=== PATIENT | male | born 1990 | race Caucasian/White ===

== ENCOUNTER 2017-05-22 04:38 | Inpatient (IN) ==
[2017-05-22] MEDS ORDERED: LOPRESSOR IV ONE (04:56)
[2017-05-22] MEDS ORDERED: ASPIRIN PO STA (04:57)
[2017-05-22] MEDS ORDERED: NS 1,000 ML ONE (04:59)
--- NOTE | 2017-05-22 05:01 | EKG Report ---
Test Performed on : 05/22/2017 04:57:28 AM Test Reason : CHEST PAIN Blood Pressure : / mmHG Vent. Rate : 174 BPM Atrial Rate : 174 BPM P-R Int : 128 ms QRS Dur : 088 ms QT Int : 282 ms P-R-T Axes : 081 038 007 degrees QTc Int : 479 ms Sinus tachycardia. Nonspecific ST abnormality Abnormal ECG No previous ECGs available Unconfirmed Result
[2017-05-22] MEDS ORDERED: NS 1,000 ML IV ONE ×2 (05:04→07:07)
[2017-05-22 05:11] LABS: BASO% 0.3 % (0.0-0.8); EOS# 0.08 X1000 (0.0-0.7); EOS% 0.4 % (0.0-10.0); HEMATOCRIT 42.3 % (42.0-52.0); HEMOGLOBIN 14.9 g/dL (14.0-18.0); IMM GRAN# 0.06 X1000 (0.0-0.04); IMM GRAN% 0.3 % (0.0-0.5); LYMPH% 15.9 % (20.5-51.1); MANUAL DIFF NEEDED? NO; MCH 29.3 PG (27-31); MCHC 35.2 g/dL (33-37); MCV 83.1 FL (81-99); MONO# 1.98 X1000 (0.11-0.59); MONO% 9.8 % (1.7-9.3); MPV 9.6 FL (7.4-10.4); NEUT% 73.3 % (42.2-75.2); PLT 447 X1000 (130-400); RBC 5.09 XMIL (4.7-6.1)
--- NOTE | 2017-05-22 05:14 | PROVIDER DOCUMENTATION ---
HPI-Cardiac General - General Chief Complaint: Palpitations Stated Complaint: HEART RACING Time Seen by Provider: 05/22/17 05:08 Source: patient Allergies/Adverse Reactions: Patient Allergies Allergy/AdvReac Type Severity Reaction Status Date / Time No Known Allergies Allergy Verified 05/22/17 04:47 Home Medications: Home Medication List Medication Instructions Recorded Confirmed Last Taken Type Ranitidine HCl [Zantac] 150 mg PO DAILY 05/22/17 05/22/17 Unknown History - History of Present Illness-Cardiac Nature of Presenting Problem: rapid heart beat with sob hyperventilating with eyes closed tightly clenched fists telling about taking 6 excedrin 20 to 30 zantac 2 rock stars each day asking if he was in the process of dying . Quality of Pain: reports: none Onset/Duration: 1-3 hours ago Timing: still present, intermittent, other (hyperventilating) Context/Activities at Onset: reports: other (driving home from [place]) Associated Symptoms: reports: dizziness, shortness of breath, swelling/lump in chest Similar Symptoms Previously?: Yes Recently Seen Here or By Another Healthcare Provider: No Review of Systems - Adult - REVIEW OF SYSTEMS - ADULT Constitutional: reports: no symptoms reported Eyes: reports: no symptoms reported Ears, Nose, Mouth & Throat: reports: no symptoms reported Cardiovascular: reports: palpitations Respiratory: reports: shortness of breath Gastrointestinal: reports: no symptoms reported Genitourinary: reports: no symptoms reported Musculoskeletal: reports: no symptoms reported Integumentary: reports: no symptoms reported Neurological: reports: numbness, paresthesia Psychiatric: reports: anxiety Endocrine: reports: no symptoms reported Hematologic/Lymphatic: reports: no symptoms reported Allergic/Immunologic: reports: no symptoms reported Past History - Adult - PAST MEDICAL HISTORY-ADULT Review of Records: reports: Nursing Assessment Review, Medications Reviewed, Social history reviewed & non-contributory. Major Childhood Illnesses: reports: denies history Cardiovascular: reports: palpitations Respiratory: reports: denies history Gastrointestinal: reports: denies history, GERD Genitourinary: reports: denies history Musculoskeletal: reports: denies history Neurological: reports: denies history Psychiatric: reports: anxiety Endocrine/Immune: reports: denies history Other Conditions: reports: denies history - PRIOR SURGERIES/PROCEDURES Surgical/Procedure History: reports: tonsillectomy - SOCIAL HISTORY Smoking: cigarettes Substance Use: other (zantac and excedrins) Physical Exam-General - PHYSICAL EXAM-ADULT Initial Vital Signs Reviewed: Yes - CONSTITUTIONAL General Appearance: anxious - EYES Eyes: PERRL/EOMI - HEAD, EARS, NOSE, MOUTH & THROAT HENMT: moist mucous membranes, normal ENT inspection - NECK Neck: supple - RESPIRATORY Respiratory: accessory muscle use, increased rate - CARDIOVASCULAR Cardiovascular: tachycardia - GASTROINTESTINAL (ABDOMEN) Abdominal Exam: soft - LYMPHATIC Lymphatic: no adenopathy - MUSCULOSKELETAL Back Exam: normal inspection, no CVA tenderness Extremity: normal range of motion Peripheral Pulses: carotid (R): 2+, carotid (L): 2+ DTR: ankle (R): 3+, ankle (L): 3+ - SKIN Integumentary: normal color - NEUROLOGIC Neurologic: grossly normal - PSYCHIATRIC Psych/Mental Status: anxious Progress - PLAN OF CARE/RESULTS Progress/Plan/Lab Results: Vital Signs - 8 hr 05/22/17 04:42 05/22/17 05:07 Temperature 98.3 F Pulse Rate 151 H 135 H Respiratory Rate 24 22 Blood Pressure 145/56 137/73 O2 Sat by Pulse Oximetry 99 100 Laboratory Results - last 24 hr 05/22/17 05/22/17 05/22/17 04:45 04:55 04:55 WBC RBC Hgb Hct MCV MCH MCHC RDW Std Deviation Plt Count MPV Immature Gran % (Auto) Neut % (Auto) Lymph % (Auto) [place] % (Auto) Eos % (Auto) Baso % (Auto) Immature Gran # (Auto) Neut # (Auto) Lymph # (Auto) [place] # (Auto) Eos # (Auto) Baso # (Auto) PT INR APTT (Factor Assay) D-Dimer Specimen Type Sample Site pH pCO2 pO2 HCO3 Base Excess Oxyhemoglobin ABG O2 Sat (Calculated) ABG O2 Saturation ABG Carboxyhemoglobin ABG Methemoglobin Syed Test A-a O2 Difference Total Hemoglobin Lactate Liter Flow Blood Gas Modality FiO2 % Sodium 140 Potassium 2.9 L Chloride 102 Carbon Dioxide 16 L Anion Gap 22 BUN 20 Creatinine 1.0 Estimated GFR/1.73 m2 > 60 BUN/Creatinine Ratio 20 Glucose 157 H Calculated Osmolality 285 Calcium 9.6 Magnesium 2.1 Total Bilirubin 0.20 AST 32 ALT 70 H Alkaline Phosphatase 90 Creatine Kinase 146 Troponin T < 0.010 Jij-B-Sgcrpbgneec Pept Total Protein 7.6 Albumin 4.9 Globulin 3.0 Albumin/Globulin Ratio 2.0 Salicylates < 3.00 L Urine Opiates Screen Ur Oxycodone Screen Urine Methadone Screen Acetaminophen Ur Barbituates Screen Ur Tricyclics Screen Ur Phencyclidine Scrn Ur Amphetamines Screen U Methamphetamines Scrn Urine MDMA Screen U Benzodiazepines Scrn Urine Cocaine Screen U Cannabinoids Screen 05/22/17 05/22/17 05/22/17 04:55 04:55 04:55 WBC 20.13 H RBC 5.09 Hgb 14.9 Hct 42.3 MCV 83.1 MCH 29.3 MCHC 35.2 RDW Std Deviation 12.8 Plt Count 447 H MPV 9.6 Immature Gran % (Auto) 0.3 Neut % (Auto) 73.3 Lymph % (Auto) 15.9 L [place] % (Auto) 9.8 H Eos % (Auto) 0.4 Baso % (Auto) 0.3 Immature Gran # (Auto) 0.06 H Neut # (Auto) 14.74 H Lymph # (Auto) 3.20 [place] # (Auto) 1.98 H Eos # (Auto) 0.08 Baso # (Auto) 0.07 PT 11.9 L INR 0.81 L APTT (Factor Assay) 26.3 D-Dimer < 0.22 L Specimen Type Sample Site pH pCO2 pO2 HCO3 Base Excess Oxyhemoglobin ABG O2 Sat (Calculated) ABG O2 Saturation ABG Carboxyhemoglobin ABG Methemoglobin Syed Test A-a O2 Difference Total Hemoglobin Lactate Liter Flow Blood Gas Modality FiO2 % Sodium Potassium Chloride Carbon Dioxide Anion Gap BUN Creatinine Estimated GFR/1.73 m2 BUN/Creatinine Ratio Glucose Calculated Osmolality Calcium Magnesium Total Bilirubin AST ALT Alkaline Phosphatase Creatine Kinase Troponin T Pmp-C-Qccmvkpuqnd Pept 18 Total Protein Albumin Globulin Albumin/Globulin Ratio Salicylates Urine Opiates Screen Ur Oxycodone Screen Urine Methadone Screen Acetaminophen Ur Barbituates Screen Ur Tricyclics Screen Ur Phencyclidine Scrn Ur Amphetamines Screen U Methamphetamines Scrn Urine MDMA Screen U Benzodiazepines Scrn Urine Cocaine Screen U Cannabinoids Screen 05/22/17 05/22/17 05/22/17 04:55 05:25 05:35 WBC RBC Hgb Hct MCV MCH MCHC RDW Std Deviation Plt Count MPV Immature Gran % (Auto) Neut % (Auto) Lymph % (Auto) [place] % (Auto) Eos % (Auto) Baso % (Auto) Immature Gran # (Auto) Neut # (Auto) Lymph # (Auto) [place] # (Auto) Eos # (Auto) Baso # (Auto) PT INR APTT (Factor Assay) D-Dimer Specimen Type ARTERIAL Sample Site R RADIAL pH 7.56 H* pCO2 20 L pO2 96 HCO3 23.4 Base Excess -1.8 Oxyhemoglobin 93.0 L ABG O2 Sat (Calculated) 19.6 ABG O2 Saturation 98.9 ABG Carboxyhemoglobin 4.10 H ABG Methemoglobin 1.9 H Syed Test YES A-a O2 Difference 79.0 Total Hemoglobin 14.9 Lactate 5.80 H* Liter Flow 2.0 Blood Gas Modality CANNULA FiO2 % 28.0 Sodium Potassium Chloride Carbon Dioxide Anion Gap BUN Creatinine Estimated GFR/1.73 m2 BUN/Creatinine Ratio Glucose Calculated Osmolality Calcium Magnesium Total Bilirubin AST ALT Alkaline Phosphatase Creatine Kinase Troponin T Uot-B-Dyfwdepbkzp Pept Total Protein Albumin Globulin Albumin/Globulin Ratio Salicylates Urine Opiates Screen NONE DETECTED Ur Oxycodone Screen NONE DETECTED Urine Methadone Screen NONE DETECTED Acetaminophen < 1.2 L Ur Barbituates Screen NONE DETECTED Ur Tricyclics Screen NONE DETECTED Ur Phencyclidine Scrn NONE DETECTED Ur Amphetamines Screen NONE DETECTED U Methamphetamines Scrn PRESUMPTIVE POSITIVE A Urine MDMA Screen NONE DETECTED U Benzodiazepines Scrn NONE DETECTED Urine Cocaine Screen NONE DETECTED U Cannabinoids Screen PRESUMPTIVE POSITIVE A Orders Category Date Time Status Cardiac Monitoring DIRECTED Care 05/22/17 04:57 Active Oxygen Therapy- ED Nursing DIRECTED Care 05/22/17 04:57 Active Saline Loc NOW Care 05/22/17 04:57 Active CHEST-PORTABLE [RAD] Stat Exams 05/22/17 04:57 Taken KUB ABDOMEN [RAD] Stat Exams 05/22/17 05:38 Taken ABG [RESP] Routine Lab 05/22/17 05:35 Completed ACETAMINOPHEN [TDM] Stat Lab 05/22/17 04:55 Completed CBC WITH ELECTRONIC DIFF [HEME] Stat Lab 05/22/17 04:55 Completed CK PROFILE [SP CHEM] Stat Lab 05/22/17 04:55 Completed COMPREHENSIVE METABOLIC PANEL [CHEM] Stat Lab 05/22/17 04:[address] D-DIMER PL [COAG] Stat Lab 05/22/17 04:55 Completed MAGNESIUM [CHEM] Stat Lab 05/22/17 04:55 Completed PRO B-NATRIURETIC PEPTIDE Stat Lab 05/22/17 04:55 Completed [address]IME WITH INR PL [COAG] Stat Lab 05/22/17 04:[address] [COAG] Stat Lab 05/22/17 04:55 Completed SALICYLATES [TDM] Stat Lab 05/22/17 04:45 Completed TROPONIN T Stat Lab 05/22/17 04:55 Completed UDS [URINE DRUG SCREEN PL] Stat Lab 05/22/17 05:25 Completed 0.9% Sodium Chloride Inj [Ns] 1,000 ml Med 05/22/17 04:59 Discontinued .ROUTE As Directed 0.9% Sodium Chloride Inj [Ns] 1,000 ml Med 05/22/17 05:04 Discontinued IV 999 mls/hr Aspirin Med 05/22/17 04:57 Discontinued 325 mg PO STAT STA Metoprolol [Lopressor] Med 05/22/17 04:56 Discontinued 5 mg IV NOW ONE Potassium Chloride E.r. [Klor-Con] Med 05/22/17 06:17 Discontinued 40 meq PO NOW ONE EKG [EKG] Stat Ther 05/22/17 04:57 Draft Result Diagrams: 05/22/17 04:55 05/22/17 04:55 - REASSESSMENT Reassessment #1 Time Reassessed: 07:05 Status: other (Pt doing better, but his HR is still 120s. Pt will be admitted to Dr. Kilgore.) - EKG 1 Time of EKG reading by physician:: 05:22 EKG Read and Signed by:: Stephan Haynes EKG Interpretation (*Must complete 3 of following elements*): Abnormal Rate: 174 Rhythm: sinus tachycardia [place]: normal QRS: normal RI Interval: normal ST Wave: non-specific ST changes Prior EKG Comparison: no prior EKG - CONSULTS/PCP/HOSPITALIST Notification #1 *Consult/PCP/Hospitalist*: Dr. Kilgore Time Discussed: 07:06 Consult Disposition: Will see in ED, Admit Departure - Departure Date of Disposition Decision: 05/22/17 Time of Disposition Decision: 07:06 DIAGNOSIS: Overdose, Palpitations Disposition: ADMITTED INPATIENT 09 Certified Medical Emergency: Emergent Condition: Stable Referrals and Follow-Ups: None,PCP [Primary Care Provider] - - Critical Care Note This patient required my direct & personal management of CC.: Yes Total Time (mins): 35 Critical Care Statement: This patient required my direct personal management to treat or rule out processes, the absence of which, could potentiallly result in sudden, clinically significant life or limb threatening deterioration. Attestation - Physician/ MADYSON Attestation Patient care was provided by Advanced Practice Provider:: No The physician spent face to face time with patient:: Yes Advanced Practice Provider documentation review:: Supervising physician onsite and consulted in the evaluation and care of this patient. The physician did have a face to face encounter with the patient.
[2017-05-22 05:31] LABS: INR 0.81 (0.86-1.15); PROTIME 11.9 Seconds (12.1-15.5)
[2017-05-22 05:32] LABS: PTT PL 26.3 Seconds (22.6-43.9)
[2017-05-22 05:41] LABS: AGAP 22; ALBUMIN 4.9 g/dL (3.5-5.0); ALKALINE PHOSPHATASE 90 U/L (32-122); BUN 20 mg/dL (8-22); CALCIUM 9.6 mg/dL (8.8-10.2); CHLORIDE 102 mmol/L (98-107); CK PROFILE 146 U/L (24-204); COSMO 285; GOT 32 U/L (10-34); GPT 70 U/L (10-44); MAGNESIUM 2.1 mg/dL (1.5-2.7); POTASSIUM 2.9 mmol/L (3.5-5.1); SODIUM 140 mmol/L (136-145); TCO2 16 mmol/L (25-35); TOTAL PROTEIN 7.6 g/dL (6.3-8.3)
[2017-05-22 05:44] LABS: BE -1.8 mmoll (-3.0-3.0); BLOOD TYPE ARTERIAL; DRAW SITE R RADIAL; METHB 1.9 % (0.0-1.5); O2(CT) 19.6 mL/dL (15.0-23.0); PCO2(98.6) 20 mmHg (35-45); PO2(98.6) 96 mmHg (60-100); SAMPLE BLOOD; SAO2 98.9 % (95.0-100.0); THB 14.9 g/dL (11.5-17.4)
[2017-05-22 05:48] LABS: ALLEN TEST YES; MODALITY CANNULA; pH(98.6) 7.56 (7.35-7.45)
[2017-05-22] MEDS ORDERED: KLOR-CON PO ONE (06:17)
[2017-05-22 06:34] LABS: UR AMPHETAMINES QUAL NONE DETECTED (NONE DETECT); UR BARBITUATES QUAL NONE DETECTED (NONE DETECT); UR BENZODIAZEPIN QUAL NONE DETECTED (NONE DETECT); UR CANNABINOIDS QUAL PRESUMPTIVE POSITIVE (NONE DETECT); UR COCAINE QUAL NONE DETECTED (NONE DETECT); UR MDMA QUAL NONE DETECTED (NONE DETECT); UR METHADONE QUAL NONE DETECTED (NONE DETECT); UR METHAMPHETAMINE QUAL PRESUMPTIVE POSITIVE (NONE DETECT); UR OPIATES QUAL NONE DETECTED (NONE DETECT); UR OXYCODONE QUAL NONE DETECTED (NONE DETECT); UR PCP QUAL NONE DETECTED (NONE DETECT); UR TCA QUAL NONE DETECTED (NONE DETECT)
--- NOTE | 2017-05-22 07:21 | Diag Imaging Result Doc PS360 ---
EXAM: CHEST-PORTABLE INDICATION: CP TECHNIQUE: One view COMPARISON: None. FINDINGS: The lungs are grossly clear. There is no discrete pleural fluid collection or pneumothorax. The cardiomediastinal silhouette and central vasculature are grossly unremarkable. IMPRESSION: No evidence of acute pathology by plain radiograph. Electronically signed by Lucas Chin 05/22/2017 7:19 AM
--- NOTE | 2017-05-22 07:22 | Diag Imaging Result Doc PS360 ---
EXAM: KUB ABDOMEN INDICATION: od TECHNIQUE: One view COMPARISON: None. FINDINGS: There are unremarkable bowel gas and stool patterns. There is no obstructive bowel pattern. There is no evidence of large volume free abdominal gas. There is no evidence of organomegaly. IMPRESSION: No evidence of acute pathology by plain radiograph. Electronically signed by Lucas Chin 05/22/2017 7:20 AM
[2017-05-22 08:24] LABS: ACETAMINOPHEN < 1.2 ug/mL (10-30)
[2017-05-22 10:36] LABS: ALBUMIN 4.2 g/dL (3.5-5.0); ALKALINE PHOSPHATASE 75 U/L (32-122); DIRECT BILIRUBIN < 0.20 mg/dL (0.00-0.20); GOT 24 U/L (10-34); GPT 56 U/L (10-44); TOTAL PROTEIN 6.4 g/dL (6.3-8.3)
[2017-05-22] MEDS: NS 1,000 ML IV SCH ×2 (10:51→17:37)
--- NOTE | 2017-05-22 11:31 | HISTORY AND PHYSICAL ---
PRIMARY CARE PHYSICIAN: None. CHIEF COMPLAINT: Increased heart rate and hyperventilating. HISTORY OF PRESENTING ILLNESS: This is a 26-year-old male, who presents to [facility] ER with complaints of an increased heart rate, hyperventilating, had a clenched fist, stated he was dizzy and short of breath. States that he took 6 Excedrin, 20- 30 use Zantac and 2 Data Systems Analyst energy drinks each day and he was noted on arrival to have a heart rate of 151. Blood pressure was 145/56. He had a white blood cell count of 20.13, a potassium of 2.9. Cardiac enzymes were negative. They did an abdomen x-ray that showed no evidence of acute pathology and a chest x-ray that showed no evidence of acute pathology by plain radiograph. He was given Lopressor 5 mg IV x1 and aspirin 325 mg p.o. x1. He was given 3 L of normal saline boluses while in the ER. His urine drug screen was presumptive positive for methamphetamines and cannabinoids. The patient admits to the cannabinoids but states that he has never used methamphetamines. He states that he has been told that antacids can sometimes cause a urine drug screen to be positive for methamphetamines. I will research this and see if this is true. I am unfamiliar with that at this time. We will discuss with the attending. His salicylate level and acetaminophen level were both negative. So, he was admitted for further evaluation and treatment. PAST MEDICAL HISTORY: GERD. PAST SURGICAL HISTORY: Tonsillectomy. FAMILY HISTORY: Noncontributory. SOCIAL HISTORY: He currently lives with his . He dips Skol tobacco 1 can a day and has done so for about 12 years and denied any alcohol use. He did again admit to using marijuana occasionally but denied methamphetamines. ALLERGIES: He has no known drug allergies. HOME MEDICATIONS: He takes Zantac 150 mg p.o. daily, but that will be held. LABORATORY DATA: Showed a white blood cell count of 20.13, hemoglobin 14.9, hematocrit 42.3, platelets 447,000. PT and INR of 11.9 and 0.81 with a D-dimer of less than 0.22. ABGs showed a pH of 7.56, pCO2 20, PO2 96, bicarb 23.4. Sodium 140, potassium 2.9, chloride 102, CO2 16, BUN of 20, creatinine 1, glucose 157, magnesium 2.1. AST of 32, ALT 70, alkaline phosphatase 90, creatine kinase 146. Troponin less than 0.010. ProBNP of 18. Urine drug screen was presumptive positive for methamphetamines and cannabinoids. Again patient denies using any methamphetamines stating that he is thinks it is related to his over use of Zantac. Again I will do some research on that and verified. Salicylate level was less than 3. Acetaminophen level was less than 1.2. Chest x-ray showed no acute findings on plain radiographs and abdomen x-ray showed no evidence of acute pathology by plain radiograph. REVIEW OF SYSTEMS: He denied any fever, chills. He had some mild blurred vision, dizziness, shortness of breath. Hyperventilating, tachycardia, nausea, vomiting. Denied any constipation, diarrhea, abdominal pain, or burning or hurting with urination. PHYSICAL EXAMINATION: On arrival, he had a temperature of 98.3 degrees, pulse was 151. Respirations 24, blood pressure was 145/56, saturating 99% on room air. Currently, he has a pulse of 89, respirations 18, blood pressure is 123/68, saturating 98% on room air. GENERAL: This is a 26-year-old male, who is lying in the bed, and answers questions appropriately. HEENT: Normocephalic and atraumatic. Pupils are equal, round, reactive to light. Extraocular movements are intact. Oropharynx and nares are clear. NECK: Supple. LUNGS: Clear to auscultation bilaterally with equal lung expansion and chest wall movement. HEART: With regular rate and rhythm. No murmurs, rubs, or gallops. ABDOMEN: Soft, nontender, nondistended. Bowel sounds are present x4 quadrants. EXTREMITIES: No clubbing, cyanosis, or edema. NEUROLOGICAL: The cranial nerves 2-12 are grossly intact. ASSESSMENT: 1. Drug overdose. 2. Leukocytosis most likely reactive. 3. Hypokalemia. 4. Drug abuse. PLAN: He was admitted to the medical unit. Placed on normal saline at 125 mL an hour. Placed on telemetry. He was supplemented for his potassium with 40 mEq p.o. x1 in the emergency room. For his tachycardia he was given metoprolol 5 mg IV x1 and that has resolved. Poison control called to get an update just now on the patient and wanted updated vitals and labs. Reviewed those with them and they felt that he was in stable condition at this time. We will recheck a CBC, BMP in the a.m. Dictated by TRAVIS Scott for Pilo Kilgore MD cc: TRAVIS Scott MD pt examined, agree with above APENOT MTDD
[2017-05-22] MEDS ORDERED: ZOFRAN IV PRN (17:20)
[2017-05-22] MEDS ORDERED: ATIVAN IV PRN (17:21)
[2017-05-22 17:33] LABS: HEMOGLOBIN 14.9 g/dL (14.0-18.0); MCH 29.2 PG (27-31); MCHC 34.7 g/dL (33-37); MCV 84.1 FL (81-99); MPV 9.5 FL (7.4-10.4); RBC 5.11 XMIL (4.7-6.1)
[2017-05-22] MEDS ORDERED: TORADOL IV PRN (17:47)
[2017-05-22 18:02] LABS: AGAP 16; BUN 10 mg/dL (8-22); CALCIUM 9.5 mg/dL (8.8-10.2); CHLORIDE 104 mmol/L (98-107); COSMO 278; MAGNESIUM 2.3 mg/dL (1.5-2.7); POTASSIUM 3.3 mmol/L (3.5-5.1); SODIUM 139 mmol/L (136-145); TCO2 19 mmol/L (25-35)
[2017-05-23] MEDS: NS 1,000 ML IV SCH ×2 (04:28→10:28)
[2017-05-23 06:39] LABS: MANUAL DIFF NEEDED? NO
[2017-05-23 06:53] LABS: BASO% 0.3 % (0.0-0.8); EOS# 0.15 X1000 (0.0-0.7); EOS% 1.3 % (0.0-10.0); HEMOGLOBIN 12.8 g/dL (14.0-18.0); IMM GRAN# 0.02 X1000 (0.0-0.04); IMM GRAN% 0.2 % (0.0-0.5); LYMPH# 2.55 X1000 (1.2-3.4); LYMPH% 22.6 % (20.5-51.1); MCH 28.6 PG (27-31); MCHC 32.8 g/dL (33-37); MCV 87.2 FL (81-99); MONO# 0.94 X1000 (0.11-0.59); MONO% 8.3 % (1.7-9.3); MPV 9.6 FL (7.4-10.4); NEUT% 67.3 % (42.2-75.2); PLT 275 X1000 (130-400); RBC 4.47 XMIL (4.7-6.1)
[2017-05-23 07:40] LABS: AGAP 9; ALKALINE PHOSPHATASE 69 U/L (32-122); BUN 10 mg/dL (8-22); CALCIUM 8.4 mg/dL (8.8-10.2); CHLORIDE 107 mmol/L (98-107); COSMO 277; DIRECT BILIRUBIN < 0.20 mg/dL (0.00-0.20); GOT 20 U/L (10-34); GPT 48 U/L (10-44); POTASSIUM 3.8 mmol/L (3.5-5.1); SODIUM 139 mmol/L (136-145); TCO2 23 mmol/L (25-35); TOTAL PROTEIN 5.9 g/dL (6.3-8.3)
--- NOTE | 2017-05-23 13:10 | Diag Imaging Result Doc PS360 ---
EXAM: GI SERIES WITH BA SWALLOW HISTORY: dysphagia TECHNIQUE: Double contrast upper GI series. Fluoroscopy time two minutes eight seconds. Dose 3553.3 cGycm2 COMPARISON: None. FINDINGS: The patient denies dysphagia but complains of nausea and vomiting. There is diffuse esophageal fold thickening suggestive dating esophagitis. No constricting or obstructing lesions are identified. No gastroesophageal reflux was elicited. There is somewhat poor coating of the stomach as the patient was not npo. Stomach appears normal in contour and configuration without ulceration or mass. There is focal thickening of the descending duodenum. This may represent duodenitis. No ulcer is appreciated. IMPRESSION: 1.Esophageal fold thickening suspicious for esophagitis. No gastroesophageal reflux was elicited. 2.Descending duodenal fold thickening which is a nonspecific finding but may represent duodenitis. Correlate clinically. Electronically signed by Lily Fall 05/23/2017 1:08 PM
[2017-05-23 15:32] VITALS: BP 141/85
[2017-05-23] MEDS ORDERED: PRILOSEC PO SCH (21:00)
--- NOTE | 2017-05-24 08:29 | DISCHARGE SUMMARY ---
ADMISSION DATE: 05/22/2017 DISCHARGE DATE: 05/23/2017 PRIMARY CARE PHYSICIAN: None. ADMISSION DIAGNOSES: 1. A drug overdose. 2. Leukocytosis, most likely reactive. 3. Hypokalemia. 4. Drug abuse. DISCHARGE DIAGNOSES: 1. Drug overdose. 2. Leukocytosis, resolved, most likely reactive. 3. Hypokalemia, resolved. 4. Drug abuse. SUMMARY OF FINDINGS: This is a 26-year-old male, who presented to the emergency room with complaints of an increased heart rate, hyperventilating, had clenched fists , and stated he was dizzy and short of breath. He stated that he had taken 6 Excedrin, 20-30 Zantac, and 2 Grades 1 6 [employer] energy drinks each day. He was noted on arrival to have a heart rate of 151, with a blood pressure of 145/56, his white blood cell count was 20.13. He had a potassium of 2.9. Cardiac enzymes were negative. Abdomen x-ray showed no evidence of acute pathology, and a chest x-ray that showed no evidence of acute pathology by plain radiograph. He was given Lopressor 5 mg IV x1, and an aspirin 325 p.o. x1. He was given 3 L of normal saline boluses while in the ER. His urine drug screen was presumptive positive for methamphetamines and cannabinoids. He admitted to the cannabinoids but states that he has never used methamphetamine. It is noted that antacids can cause false-positive in methamphetamines, so we are assuming that this is the reason for the positive methamphetamines, as he took 20-30 Zantac a day. His salicylate level and acetaminophen level were both negative. We supplemented his potassium. We did an upper GI barium swallow that showed esophageal fold thickening suspicious for an esophagitis. No GERD was elicited, and the descending duodenal fold thickening, which is a nonspecific finding, but may represent duodenitis. Poison control has been involved in this case. We have monitored his liver enzymes, which have improved with an AST of 20, and an ALT of 48, and alkaline phosphatase of 69, and it is now felt that he can safely be discharged home. DISCHARGE MEDICATIONS: He will have a prescription for omeprazole 40 mg 1 p.o. b.i.d. for 2 weeks, and then daily #42, with 1 refill, and Carafate 1 g 4 times a day #120, with no refills. DISCHARGE INSTRUCTIONS: He has been encouraged to limit his energy drinks due to caffeine causing his tachycardia, and to limit the number of Excedrin he takes in a day also. He verbalizes understanding. FOLLOWUP: We have given him, for follow-up, the number to the physician referral line and to the [facility]. All discharge instructions have been reviewed with the patient and he verbalized understanding. TIME SPENT: A 35-minute discharge. Dictated by TRAVIS Scott for Pilo Kilgore MD cc: TRAVIS Scott MD pt seen face to face, pt no longer tremulous, workup has been negative, encouraged him to take recommended doses of medications, and he will need GI workup when he can complete, UGI series showed esophagitis and duodenitis, and will discharge him on PPI and carafate APENOT MTDD
[2017-05-26 10:21] LABS: HEPATITIS PROFILE ACUTE SEE COMMENTS
== END 2017-05-23 17:53 | disposition home or self-care (01) ==
LOC: P.ED 04:38 → P.MEDSURG 08:14
PROVIDERS: ATTEND Internal Medicine